=== PATIENT | male | born 1960 | race Caucasian/White ===

== ENCOUNTER 2019-05-12 19:44 | Emergency (ER) | payer OTHER, SELFPAY ==
[2019-05-12 19:44] VITALS: BP 157/86; PULSE 80; RESP 16; TEMP 36.8; O2SAT 95; BMI 25.7
--- NOTE | 2019-05-12 20:23 | US_ITS ---
STUDY: VENOUS DOPPLER ULTRASOUND - RIGHT LOWER EXTREMITY REASON FOR EXAM: Male, 58 years old. INJURY IN JANUARY -SWELLING/ REDNESS/PAIN RT LEG X 2 DAYS TECHNIQUE: Ultrasound evaluation of the deep vein system to include kelly-scale imaging and compression was performed. Kelly-scale imaging and Doppler sonographic evaluation, including duplex spectral analysis and qualitative color flow sonography, was performed. COMPARISON: None. FINDINGS: Common Femoral Vein: Normal compression, spontaneity and augmentation. Normal color Doppler. Common Femoral Vein/Greater Saphenous Junction: Normal compression. Femoral Proximal: Normal compression. Femoral Middle: Normal compression, spontaneity and augmentation. Normal color Doppler. Femoral Distal: Normal compression. Popliteal Vein: Normal compression, spontaneity and augmentation. Normal color Doppler. Posterior Tibial Vein: Normal compression. Peroneal Vein: Normal compression. There is no demonstrated deep venous thrombosis. US/Venous Duplex Imag/Limited/Uni IMPRESSION: No evidence for deep venous thrombosis of the right lower extremity. Electronically Signed: Gary Soto, at 21:01 EST Tel , Service support ,
--- NOTE | 2019-05-12 22:06 | ED.DCSUM_ITS ---
History of Present Illness Chief Complaint: Lower Extremity Injury Informant: Patient Onset: Days - 2-3 Context: Gradual Onset Timing: Continuous Quality of Pain: - - sore Location: right lower leg Current Severity: Moderate Maximum Severity: Moderate Worsened by: walking, palpation Relieved by: rest, remaining still Associated Symptoms: Negative for: Parasthesia, Weakness, Loss of Funtion Narrative: Patient states he had an injury 4 or 5 months ago to the affected area, but no injury recently. He states he was chopping wood and 1 of the pieces hit him in the medial aspect of the right lower leg at the same area where the redness started a couple days ago. He states his jeans were on, the jeans were not torn but he did have the skin broken and shows me pictures of it, it appears to be a contusion/abrasion and he states there were no obvious foreign bodies for him to remove. He states that healed. Now he had redness and swelling started at that same area with redness that is spread above and below that area. He denies any systemic symptoms. No recent travel out of the area, immobilization, hospitalization. He takes no medications and is healthy otherwise. There is been no discharge from any areas here or other foreign bodies that he knows of. Past Medical History - Allergies and Home Meds Allergies/Adverse Reactions: Allergies No Known Allergies Allergy (Verified 05/12/19 19:44) Primary Care Physician: Prosper Camejo MD [Primary Care Provider] - 3-5 Days (Call for appointment) Lives: Spouse/ Significant Other Smoking Status: Never smoker Review of Systems General: Denies: Chills, Fever, Sweats Eyes: Denies: Visual changes - bilaterally, Diplopia ENT: Denies: Rhinorrhea, Sore throat Cardiovascular: Denies: Chest pain, Palpitations Respiratory: Denies: Dyspnea, Cough, Dyspnea on exertion Gastrointestinal: Denies: Abdominal pain, Nausea, Vomiting, Diarrhea, Melena, Hematochezia Genitourinary: Denies: Dysuria, Hematuria, Frequency Musculoskeletal: Reports: Swelling, Extremity Pain. Denies: Back pain Skin: Reports: Rash. Denies: Wounds Neurological: Denies: Headache, Weakness, Numbness Physical Exam Vital Signs/Narrative: Vital Signs Temp Pulse Resp BP Pulse Ox 05/12/19 19:44 98.2 F 80 16 157/86 H 95 Inital Vital Signs reviewed: Yes - Extremity Exam Right Tib fib: Edema - Right lower leg, along with redness, some mild induration, warmth, and tenderness at the medial right proximal calf without knee involvement, but the tender erythema spreads distally and proximally into the thigh. No palpable cords. No fluctuance or abscess clinically. Full range of motion about the knee and ankle. All compartments are soft, but the calf is tender. General: Well nourished, Well developed, - - Well-appearing, NAD Head: Normocephalic, Atraumatic Eyes: Perrl, EOMI ENT: No Trauma, Moist Mucous Membranes Back: Nontender, - - FROM Skin: Rash - See above. Redness to the right lower leg, that has spread d istally towards the ankle involving the medial aspect of it, and proximally to the distal medial right thigh and a limited distribution there. The worst area is at the medial right half of the calf. There is no fluctuance or appearance of an abscess here, it is not pointing. It is tender, but not severely so objectively. No subcutaneous emphysema/crepitance. Neurological: Alert, Oriented x3, Cranial nerves II-XII grossly intact, Normal Strength, Normal Sensation, Normal Gait Psychological: Normal affect, Normal Mood Diagnostic/Tx/Re-eval Clinical Impression(s) from Imaging Studies Venous Duplex 05/12/19 20:23 IMPRESSION: No evidence for deep venous thrombosis of the right lower extremity. Electronically Signed: Gary Soto, at 21:01 EST Tel , Service support , Tibia/Fibula X-Ray 05/12/19 22:23 IMPRESSION: No evidence of acute osseous abnormality. Small opacity overlying the mid subcutaneous tissue of the anterior tibia region which is likely vascular however small radiolucent foreign body such as wood may also be a consideration, correlate for site of injury. Electronically Signed: Jose Pulido DO at 22:54 EST , Service support , Lower Extremity CT 05/12/19 23:19 IMPRESSION: No foreign body is identified. Diffuse subcutaneous induration could be related to edema and/or cellulitis. No abscesses or hematomas are identified. Electronically Signed: Ramon Yee MD at 0:07 EST Tel , Service support , Laboratory Results 05/12/19 05/12/19 22:04 22:04 WBC 8.0 RBC 4.53 L Hgb 13.7 Hct 40.5 MCV 89.4 MCH 30.2 MCHC 33.8 RDW Std Deviation 39.4 RDW Coeff of Gunnar 12.1 Plt Count 163 MPV 9.4 Immature Gran % (Auto) 0.400 Neut % (Auto) 69.6 Lymph % (Auto) 17.0 L Limestone % (Auto) 11.7 H Eos % (Auto) 1.1 Baso % (Auto) 0.2 Absolute Neuts (auto) 5.6 Absolute Lymphs (auto) 1.36 Nucleated RBC % 0 Sodium 143 Potassium 3.4 L Chloride 110 H Carbon Dioxide 27.0 Anion Gap 6 BUN 22 H Creatinine 1.25 Estim Creat Clear Calc 68.98 Est GFR (MDRD) Af Amer 76 Est GFR (MDRD) Non-Af 63 BUN/Creatinine Ratio 17.6 Glucose 151 H Calcium 8.8 - Medical Decision Making Initially venous eval was obtained, as it appears the patient was transferred from an urgent care out of concern for a DVT. I do not think that is unreasonable. It was done and negative for DVT, SVT, or focal collection according to the tech. Therefore, I suspect this is cellulitis until proven otherwise, so I started him on an IV with Unasyn since Pseudomonas is not a particular concern here, nor is MRSA since there is no abscess, and obtain basic labs. I also obtained an x-ray of the area to look for a retained foreign body given the history of would potentially penetrating this area several months ago. Radiologist interpreted the x-ray as a possible anterior retained foreign body versus vascular phenomenon. The location appeared a little more anterior than the focus of the patient's cellulitis, and in reviewing pictures of the patient injury from several months ago on family's cell phone, it was difficult to tell if the location of the injury coincided with the possible location of the abnormality on x-ray, especially since there were only AP and lateral of the affected area obtained. Therefore, in my opinion CT with IV contrast is indicated to rule out a retained foreign body. This was obtained after discussing with the patient who was okay with getting these images, and it shows no retained foreign body and is consistent with cellulitis without abscess. Al so of note, I outlined the patient's erythema with a skin marking pen. And on multiple reexaminations during his 4+ hour ED visit, there was no significant extension of the erythema on multiple re-evaluations. This and other features of the exam argue against necrotizing fasciitis. I did offer admission for IV antibiotics for more than just the 1 ED dose, the patient declines and is okay with attempting outpatient treatment which I think is very reasonable. We discussed reasons to return. ED Disposition - Plan for ED Patient: Disposition: Home or Assisted Living Diagnosis: Cellulitis of right lower leg Instructions: Cellulitis Prescriptions: Cephalexin [Keflex] 500 mg PO 4X/DAY #40 cap Prescription Printed Referrals: Prosper Camejo MD [Primary Care Provider] - 3-5 Days (Call for appointment)
[2019-05-12 22:08] LABS: Absolute Lymphocyte Count 1.36 X10^3/uL (0.83-4.51); Absolute Neutrophil Count 5.6 X10^3/uL (2.0-7.7); Basophil# 0.02 X10^3/uL; Basophil% 0.2 % (0-1); Eosinophil# 0.09 X10^3/uL; Eosinophils% 1.1 % (0-5); Hematocrit 40.5 % (40-54); Hemoglobin 13.7 g/dL (13.0-16.5); Lymphocyte # 1.36 X10^3/ul (4.0); Mean Corp Hgb Conc 33.8 g/dL (32-36); Mean Corpuscular Hgb 30.2 pg (27.0-32.0); Mean Corpuscular Volume 89.4 fL (80-94); Mean Platelet Vol. 9.4 fl (6.2-12.0); Monocyte# 0.94 X10^3/uL; Monocyte% 11.7 % (0-10); NRBC Flagged by Analyzer 0 % (0-5); Neutrophil # 5.58 X10^3/uL (2.7-7.7); Neutrophil % 69.6 % (47-70); Platelet Count 163 K/mm3 (150-450); RBC Distribution Width CV 12.1 % (11.6-14.6); RBC Distribution Width SD 39.4 fl (35.1-43.9); Red Blood Count 4.53 M/mm3 (4.6-6.2)
--- NOTE | 2019-05-12 22:23 | RAD_ITS ---
STUDY: X-RAY - RIGHT TIBIA AND FIBULA REASON FOR EXAM: Male, 58 years old. PT SENT OVER FROM URGENT CARE FOR POSSIBLE BLOOD CLOT IN THE LEG. STATES HE DROPPED A PIECE OF WOOD ON IT BACK IN NOV AND NOW HAVING SWELLING. EVAL FOR FB. TECHNIQUE: 3 view(s) of the tibia and fibula were obtained. COMPARISON: None. FINDINGS: Normal visualized tibia. Normal visualized fibula. There is a small opacity underlying the subcutis tissue within the mid tibia which may be vascular radiolucent foreign body not completely excluded. RAD/Tibia & Fibula 2 Views IMPRESSION: No evidence of acute osseous abnormality. Small opacity overlying the mid subcutaneous tissue of the anterior tibia region which is likely vascular however small radiolucent foreign body such as wood may also be a consideration, correlate for site of injury. Electronically Signed: Jose Pulido DO at 22:54 EST , Service support ,
[2019-05-12 22:33] LABS: Anion Gap 6 (5-15); BUN 22 mg/dL (7-18); BUN/Creat Ratio 17.6 RATIO (10-20); Calcium,Total 8.8 mg/dL (8.5-10.1); Chloride 110 mmol/L (98-107); Creatinine, Serum 1.25 mg/dL (0.70-1.30); EST Glomerular Filtration Rate 63 mL/min (>60); Est Glom Filt Rate - Afr Amer 76 mL/min (>60); Estimated Creatinine Clearance 68.98 ml/min; Glucose 151 mg/dL (74-106); Potassium 3.4 mmol/L (3.5-5.1); Sodium Level 143 mmol/L (136-145)
--- NOTE | 2019-05-12 23:19 | CT_ITS ---
STUDY: CT LOWER EXTREMITY WITH CONTRAST, RIGHT REASON FOR EXAM: Male, 58 years old. INFECTION, POSSIBLE FB ON XRAY, PIECE OF WOOD FELL ON HIS LEG IN JANUARY, REDNESS NOW, CONCERN FOR PIECE OF WOOD RADIATION DOSAGE (If Supplied By Facility): CTDIvol = ( 15.35 ) mGy, DLP = ( 835.40 ) mGycm. Individualized dose optimization techniques were used for this CT.? TECHNIQUE: Axial CT images of the [ right lower leg ] were performed after IV administration of 100 cc of Isovue-300 followed by sagittal and coronal reconstructions. COMPARISON: Radiographs 05/12/2019 FINDINGS: No foreign body is identified. Diffuse subcutaneous induration could be related to edema and/or cellulitis. Multiple subcutaneous varices. No abscesses or hematomas are identified. The visualized musculature is intact. The visualized knee and ankle joints are intact. CT/Extremity Lower WITH Contrast IMPRESSION: No foreign body is identified. Diffuse subcutaneous induration could be related to edema and/or cellulitis. No abscesses or hematomas are identified. Electronically Signed: Ramon Yee MD at 0:07 EST Tel , Service support ,
[2019-05-13 00:20] VITALS: BP 138/79; PULSE 76; RESP 12; O2SAT 97
== END 2019-05-13 00:22 | disposition home or self-care (01) ==
PROVIDERS: Emergency Provider Emergency Medicine; PCP Internal Medicine
DX: L03.115 Cellulitis of right lower limb (principal)
CPT/HCPCS: 73590; 73701; 80048; 85025; 93971; 96361; 96365; 99283; J7040; J7050; Q9967; A4216; J0295